=== PATIENT | female | born 1995 | race Caucasian/White ===

== ENCOUNTER → 2021-02-06 | Outpatient (CLI) | payer BC, OTHER ==
[2021-02-06 19:35] LABS: HEMOGLOBIN 12.4 gm/dl (12.3-15.3); RED BLOOD COUNT 4.93 M/UL (4.00-5.10); WHITE BLOOD COUNT 11.9 K/UL (4.5-11.0)
[2021-02-06 19:59] LABS: BUN/CREATININE RATIO 21 (0-10)
[2021-02-08 10:14] LABS: HBSAG SCREEN Negative (Negative); HEPATITIS B SURF AB QUANT <3.1 mIU/mL (Immunity>9.9)
[2021-02-19 15:09] LABS: TPMT ACTIVITY 25.9 (.)
== END ==
LOC: LAB 18:33
PROVIDERS: Internal Medicine Gastroenterology
DX: K51.90 Ulcerative colitis, unspecified, without complications (principal)
CPT/HCPCS: 80053; 82150; 83690; 85025; 86140; 86317; 87340

== ENCOUNTER → 2021-03-04 | Outpatient (CLI) | payer BC, OTHER ==
[~2021-03-04] VITALS: Ht 167.6 cm; Wt 94.3 kg
[2021-03-04 08:49] LABS: HEMOGLOBIN 12.8 gm/dl (12.3-15.3); RED BLOOD COUNT 4.9 M/UL (4.00-5.10); WHITE BLOOD COUNT 13.9 K/UL (4.5-11.0)
[2021-03-04 09:11] LABS: BUN/CREATININE RATIO 20 (0-10)
== END ==
LOC: OPSV 08:09
PROVIDERS: Internal Medicine Gastroenterology
DX: K51.90 Ulcerative colitis, unspecified, without complications (principal); B34.9 Viral infection, unspecified; K51.30 Ulcerative (chronic) rectosigmoiditis without complications; Z80.3 Family history of malignant neoplasm of breast; Z80.0 Family history of malignant neoplasm of digestive organs; Z78.9 Other specified health status
CPT/HCPCS: 36415; 80053; 85025; 86140; 96365; J3380; J7050

== ENCOUNTER → 2021-03-18 | Outpatient (CLI) | payer BC, OTHER ==
[~2021-03-18] VITALS: Ht 167.6 cm; Wt 94.3 kg
[2021-03-18 09:13] LABS: RED BLOOD COUNT 5.14 M/UL (4.00-5.10); WHITE BLOOD COUNT 13.7 K/UL (4.5-11.0)
[2021-03-18 09:39] LABS: BUN/CREATININE RATIO 25 (0-10)
== END ==
LOC: OPSV 08:00
PROVIDERS: Internal Medicine Gastroenterology
DX: K51.30 Ulcerative (chronic) rectosigmoiditis without complications (principal); B34.9 Viral infection, unspecified
CPT/HCPCS: 36415; 80053; 85025; 86140; 96365; J3380; J7050

== ENCOUNTER → 2021-04-29 | Outpatient (CLI) | payer BC, OTHER ==
[~2021-04-29] VITALS: Ht 167.6 cm; Wt 94.3 kg
[2021-04-29 08:49] LABS: HEMOGLOBIN 14.6 gm/dl (12.3-15.3); RED BLOOD COUNT 5.27 M/UL (4.00-5.10); WHITE BLOOD COUNT 16.5 K/UL (4.5-11.0)
[2021-04-29 09:02] LABS: BUN/CREATININE RATIO 18 (0-10)
== END ==
LOC: OPSV 08:00
PROVIDERS: Internal Medicine Gastroenterology
DX: K51.90 Ulcerative colitis, unspecified, without complications (principal); B34.9 Viral infection, unspecified; Z87.19 Personal history of other diseases of the digestive system; Z80.3 Family history of malignant neoplasm of breast; Z78.9 Other specified health status
CPT/HCPCS: 36415; 80053; 85025; 86140; 96365; J3380; J7050

== ENCOUNTER → 2021-06-24 | Outpatient (CLI) | payer BC ==
[~2021-06-24] VITALS: Ht 167.6 cm; Wt 94.3 kg
[2021-06-24 08:28] LABS: HEMOGLOBIN 13.4 gm/dl (12.3-15.3); RED BLOOD COUNT 4.58 M/UL (4.00-5.10); WHITE BLOOD COUNT 10.1 K/UL (4.5-11.0)
[2021-06-24 08:42] LABS: BUN/CREATININE RATIO 20 (0-10)
== END ==
LOC: OPSV 07:54
PROVIDERS: Internal Medicine Gastroenterology
DX: K51.30 Ulcerative (chronic) rectosigmoiditis without complications (principal); B34.9 Viral infection, unspecified; Z87.19 Personal history of other diseases of the digestive system; Z80.3 Family history of malignant neoplasm of breast; Z80.0 Family history of malignant neoplasm of digestive organs
CPT/HCPCS: 36415; 80053; 85025; 86140; 96365; J3380; J7050

== ENCOUNTER → 2021-08-19 | Outpatient (CLI) | payer BC ==
[~2021-08-19] VITALS: Ht 167.6 cm; Wt 94.3 kg
[2021-08-19 08:56] LABS: HEMOGLOBIN 14.4 gm/dl (12.3-15.3); RED BLOOD COUNT 4.86 M/UL (4.00-5.10); WHITE BLOOD COUNT 7.6 K/UL (4.5-11.0)
[2021-08-19 09:43] LABS: BUN/CREATININE RATIO 18 (0-10)
== END ==
LOC: OPSV 07:59
PROVIDERS: Internal Medicine Gastroenterology
DX: K51.30 Ulcerative (chronic) rectosigmoiditis without complications (principal)
CPT/HCPCS: 36415; 80053; 85025; 86140; 96365; J3380; J7030

== ENCOUNTER → 2021-12-16 | Outpatient (CLI) | payer BC, OTHER ==
[~2021-12-16] VITALS: Ht 167.6 cm; Wt 94.3 kg
[2021-12-16 10:43] LABS: HEMOGLOBIN 13.8 gm/dl (12.3-15.3); RED BLOOD COUNT 4.61 M/UL (4.00-5.10); WHITE BLOOD COUNT 10.1 K/UL (4.5-11.0)
[2021-12-16 11:06] LABS: BUN/CREATININE RATIO 13 (0-10)
== END ==
LOC: OPSV 12-09 09:00
PROVIDERS: Internal Medicine Gastroenterology
DX: K51.30 Ulcerative (chronic) rectosigmoiditis without complications (principal); B34.9 Viral infection, unspecified
CPT/HCPCS: 36415; 80053; 85025; 86140; 96365; J3380; J7050

== ENCOUNTER → 2022-02-10 | Outpatient (CLI) | payer BC, OTHER ==
[~2022-02-10] VITALS: Ht 167.6 cm; Wt 94.3 kg
[2022-02-10 09:11] LABS: HEMOGLOBIN 13.3 gm/dl (12.3-15.3); RED BLOOD COUNT 4.32 M/UL (4.00-5.10); WHITE BLOOD COUNT 11.6 K/UL (4.5-11.0)
[2022-02-10 09:38] LABS: BUN/CREATININE RATIO 15 (0-10)
[2022-02-12 22:09] LABS: QUANTIFERON MITOGEN VALUE >10.00 IU/mL (.); QUANTIFERON NIL VALUE 0.03 IU/mL (.); QUANTIFERON TB1 AG VALUE 0.03 IU/mL (.); QUANTIFERON TB2 AG VALUE 0.02 IU/mL (.); QUANTIFERON-TB GOLD PLUS Negative (Negative)
== END ==
LOC: OPSV 08:29
PROVIDERS: Internal Medicine Gastroenterology
DX: K51.311 Ulcerative (chronic) rectosigmoiditis with rectal bleeding (principal)
CPT/HCPCS: 80053; 85025; 86140; 96365; J3380; J7050

== ENCOUNTER → 2022-04-07 | Outpatient (CLI) | payer BC, OTHER ==
[~2022-04-07] VITALS: Ht 167.6 cm; Wt 94.3 kg
[2022-04-07 08:46] LABS: HEMOGLOBIN 12.9 gm/dl (12.3-15.3); RED BLOOD COUNT 4.25 M/UL (4.00-5.10); WHITE BLOOD COUNT 12.4 K/UL (4.5-11.0)
[2022-04-07 09:14] LABS: BUN/CREATININE RATIO 16 (0-10)
== END ==
LOC: OPSV 08:13
PROVIDERS: Internal Medicine Gastroenterology
DX: K51.311 Ulcerative (chronic) rectosigmoiditis with rectal bleeding (principal)
CPT/HCPCS: 80053; 85025; 86140; 96365; J3380; J7050

== ENCOUNTER → 2022-05-29 | Outpatient (CLI) | payer BC, OTHER ==
[~2022-05-29] MED LIST: DOCUSATE SODIU100 MG PO; EXPECTA PRENAT1 EACH PO; HYDROCODON-ACE1 EAC4 PO; IBUPROFEN600 MG PO
[2022-05-29 13:15] LABS: HEMOGLOBIN 13.3 gm/dl (12.3-15.3); RED BLOOD COUNT 4.39 M/UL (4.00-5.10); WHITE BLOOD COUNT 12.2 K/UL (4.5-11.0)
[2022-05-29 13:36] LABS: BUN/CREATININE RATIO 16 (0-10)
== END ==
LOC: GENOP 12:11
PROVIDERS: Obstetrics & Gynecology
DX: Z01.812 Encounter for preprocedural laboratory examination (principal); O13.3 Gestational [pregnancy-induced] hypertension without significant proteinuria, third trimester; Z3A.00 Weeks of gestation of pregnancy not specified
CPT/HCPCS: 80053; 85025

== ENCOUNTER 2022-05-30 05:07 | Inpatient (IN) | payer BC, OTHER ==
[~2022-05-30] VITALS: Ht 167.6 cm; Wt 108.4 kg
[2022-05-30] MEDS ORDERED: EXPECTA PRENAT1 EACH PO (06:31)
[2022-05-31 05:19] LABS: HEMOGLOBIN 9.8 gm/dl (12.3-15.3)
[2022-05-31] MEDS ORDERED: DOCUSATE SODIU100 MG PO (08:58)
[2022-05-31] MEDS ORDERED: IBUPROFEN600 MG PO (08:58)
[2022-05-31] MEDS ORDERED: HYDROCODON-ACE1 EAC4 PO (08:58)
== END 2022-06-01 13:46 | disposition home or self-care (01) | DRG 787 ==
LOC: OB 05:07
PROVIDERS: ADMIT Obstetrics & Gynecology
PROC: 10D00Z1 Extraction of Products of Conception, Low, Open Approach (ICD-10-PCS; principal; 2022-05-30 07:30)
DX: O13.4 Gestational [pregnancy-induced] hypertension without significant proteinuria, complicating childbirth (principal); K51.90 Ulcerative colitis, unspecified, without complications; O99.62 Diseases of the digestive system complicating childbirth; O99.214 Obesity complicating childbirth; E66.9 Obesity, unspecified; O45.93 Premature separation of placenta, unspecified, third trimester; Z37.0 Single live birth; Z3A.37 37 weeks gestation of pregnancy; Z90.49 Acquired absence of other specified parts of digestive tract; Z88.0 Allergy status to penicillin; Z98.890 Other specified postprocedural states; Z80.3 Family history of malignant neoplasm of breast; Z80.0 Family history of malignant neoplasm of digestive organs; Z83.3 Family history of diabetes mellitus
CPT/HCPCS: 36415; 81001; 82800; 85014; 85018; 90715; C9113; J1580; J1885; J2274; J2370; J2405; J2590; J3010

== ENCOUNTER → 2022-06-16 | Outpatient (CLI) | payer BC, OTHER ==
[~2022-06-16] VITALS: Ht 167.6 cm; Wt 94.3 kg
[2022-06-16 11:58] LABS: BUN/CREATININE RATIO 25 (0-10)
[2022-06-16 12:11] LABS: HEMOGLOBIN 12.2 gm/dl (12.3-15.3); RED BLOOD COUNT 4.18 M/UL (4.00-5.10); WHITE BLOOD COUNT 11.6 K/UL (4.5-11.0)
== END ==
LOC: OPSV 06-02 08:00
PROVIDERS: Internal Medicine Gastroenterology
DX: K51.311 Ulcerative (chronic) rectosigmoiditis with rectal bleeding (principal)
CPT/HCPCS: 80053; 85025; 86140; 96365; J3380; J7050

== ENCOUNTER → 2022-08-11 | Outpatient (CLI) | payer BC, OTHER ==
[~2022-08-11] VITALS: Ht 167.6 cm; Wt 94.3 kg
[2022-08-11 09:21] LABS: HEMOGLOBIN 12.2 gm/dl (12.3-15.3); RED BLOOD COUNT 4.48 M/UL (4.00-5.10); WHITE BLOOD COUNT 9.5 K/UL (4.5-11.0)
[2022-08-11 09:41] LABS: BUN/CREATININE RATIO 16 (0-10)
== END ==
LOC: OPSV 08-10 09:00
PROVIDERS: Internal Medicine Gastroenterology
DX: K51.311 Ulcerative (chronic) rectosigmoiditis with rectal bleeding (principal)
CPT/HCPCS: 80053; 85025; 86140; 96365; J3380; J7050